=== PATIENT | male | born 1970 | race Caucasian/White ===

== ENCOUNTER 2018-01-09 19:02 | Emergency (ER) | payer MEDICARE, MEDICAID ==
[~2018-01-09] VITALS: Ht 182.9 cm; Wt 109.2 kg
[2018-01-09 19:46] LABS: BASOPHILS # (AUTO) 0.1 X10'3 (0-0.2); BASOPHILS % (AUTO) 0.8 % (0-1); EOSINOPHILS # (AUTO) 0.3 X10'3 (0-0.9); EOSINOPHILS % (AUTO) 4.1 % (0-6); HEMATOCRIT 51.6 % (42.0-52.0); HEMOGLOBIN 17.6 g/dl (14.0-17.9); LYMPHOCYTES # (AUTO) 1.9 X10'3 (1.1-4.8); LYMPHOCYTES % (AUTO) 23.7 % (21-51); MEAN CORPUSCULAR HEMOGLOBIN 31.9 PG (27.0-31.0); MEAN CORPUSCULAR HGB CONC 34.2 % (33.0-36.5); MEAN CORPUSCULAR VOLUME 93.5 FL (78-98); MEAN PLATELET VOLUME 7.9 FL (7.4-10.4); MONOCYTES # (AUTO) 0.7 X10'3 (0-0.9); MONOCYTES % (AUTO) 8.6 % (2-12); NEUTROPHILS # (AUTO) 5.1 X10'3 (1.8-7.7); NEUTROPHILS % (AUTO) 62.8 % (42-75); PLATELET COUNT 272 X10'3 (140-440); RED BLOOD COUNT 5.52 X10'6 (4.70-6.10); RED CELL DISTRIBUTION WIDTH 13.1 % (11.5-14.5); WHITE BLOOD COUNT 8.1 X10'3 (4.5-11.0)
[2018-01-09 19:55] LABS: ALANINE AMINOTRANSFERASE 62 U/L (12-78); ALKALINE PHOSPHATASE 138 IU/L (46-116); ANION GAP 11 (8-16); ASPARTATE AMINO TRANSFERASE 33 U/L (10-37); BILIRUBIN,TOTAL 0.6 MG/DL (0.1-1.0); BLOOD UREA NITROGEN 13 MG/DL (7-18); BUN/CREATININE RATIO 15.1 (5.4-32.0); CALCIUM 9.5 MG/DL (8.5-10.1); CHLORIDE 101 MMOL/L (99-107); CREATININE 0.86 MG/DL (0.60-1.10); GLUCOSE 93 MG/DL (70-104); SODIUM 138 MMOL/L (135-145); TOTAL CARBON DIOXIDE 25.6 MMOL/L (24-32); TOTAL PROTEIN 8.2 G/DL (6.4-8.2); eGFR > 90 ML/MIN
[2018-01-09 20:04] LABS: ETHANOL < 0.010 GM/DL (0.0-0.010)
[2018-01-09 20:41] LABS: URINE AMPHETAMINE SCREEN POSITIVE (Neg); URINE BARBITUATE SCREEN NEGATIVE (Neg); URINE BENZODIAZEPINES SCREEN POSITIVE (Neg); URINE CANNABINOID SCREEN POSITIVE (Neg); URINE COCAINE SCREEN NEGATIVE (Neg); URINE METHADONE SCREEN NEGATIVE (Neg); URINE OPIATE SCREEN POSITIVE (Neg); URINE PHENCYCLIDINE SCREEN NEGATIVE (Neg)
[2018-01-09] MEDS ORDERED: CANA100T PO (23:03)
[2018-01-09] MEDS ORDERED: AMIT-189 PO (23:03)
[2018-01-09] MEDS ORDERED: FLUT16SP2 BOTHNARES (23:03)
[2018-01-09] MEDS ORDERED: LISI10TA4 PO (23:03)
[2018-01-09] MEDS ORDERED: OXYC10TA47 PO (23:03)
[2018-01-09] MEDS ORDERED: IBUP-1986 PO (23:03)
[2018-01-09] MEDS ORDERED: LORA-269 PO (23:03)
[2018-01-09] MEDS ORDERED: CYCL-1 PO (23:03)
[2018-01-09] MEDS ORDERED: FLO0.4C PO (23:03)
[2018-01-09] MEDS ORDERED: MORP30TA PO (23:03)
[2018-01-09] MEDS ORDERED: OMEP10CA4 PO (23:03)
[2018-01-09] MEDS ORDERED: DIAZ5TAB PO (23:03)
[2018-01-10] MEDS ORDERED: LORazepam 0.5 MG tablet PO PRN (01:00)
[2018-01-10] MEDS ORDERED: haloperidol 1mg tablet PO PRN (01:00)
[2018-01-10 06:52] VITALS: BP 120/70
[2018-01-10] MEDS ORDERED: MORP30CA16 PO (09:53)
[2018-01-10] MEDS ORDERED: oxyCODONE IR 5mg (immed. release) tablet PO PRN (10:10)
[2018-01-10] MEDS ORDERED: morphine ER 30mg tablet PO SCH (10:30)
[2018-01-10] MEDS ORDERED: CANA100T PO (12:18)
[2018-01-10] MEDS ORDERED: tamsulosin 0.4mg capsule PO SCH (18:00)
[2018-01-10] MEDS ORDERED: fluticasone nasal spray 16GM bottle NS SCH (20:00)
== END 2018-01-10 11:48 ==
LOC: ER 19:03
DX: F32.9 Major depressive disorder, single episode, unspecified (principal); F41.9 Anxiety disorder, unspecified; R45.851 Suicidal ideations; F15.10 Other stimulant abuse, uncomplicated; G89.29 Other chronic pain; F17.200 Nicotine dependence, unspecified, uncomplicated; Z79.2 Long term (current) use of antibiotics; Z79.899 Other long term (current) drug therapy
CPT/HCPCS: 36415; 80053; 80305; 80320; 84443; 85025; 99285

== ENCOUNTER 2018-01-10 10:06 | Inpatient (IN) | payer MEDICARE, MEDICAID ==
[~2018-01-10] VITALS: Ht 182.9 cm; Wt 107.2 kg
[~2018-01-10 10:06] MED LIST: AMIT-189 PO; CANA100T PO; CYCL-1 PO; DIAZ5TAB PO; FLO0.4C PO; FLUT16SP2 BOTHNARES; IBUP-1986 PO; LISI10TA4 PO; LORA-269 PO; MORP30CA16 PO; MORP30TA PO; OMEP10CA4 PO; OXYC10TA47 PO
[2018-01-10] MEDS ORDERED: CANA100T PO (12:18)
[2018-01-10] MEDS ORDERED: mag hydrox/Alum hydrox/simeth 30ml oral suspension PO PRN (12:20)
[2018-01-10] MEDS ORDERED: acetaminophen 325mg tablet PO PRN (12:20)
[2018-01-10] MEDS ORDERED: magnesium hydroxide 30ml (MOM) UD suspension PO PRN (12:20)
[2018-01-10 12:25] VITALS: BP 124/85
[2018-01-10] MEDS ORDERED: ibuprofen tablet 400 MG TABLET PO PRN (16:00)
[2018-01-10] MEDS ORDERED: oxyCODONE IR 5mg (immed. release) tablet PO PRN (16:00)
[2018-01-10] MEDS ORDERED: tamsulosin 0.4mg capsule PO SCH (18:00)
[2018-01-10 19:00] VITALS: BP 123/77
[2018-01-10] MEDS ORDERED: morphine ER 30mg tablet PO SCH (20:00)
[2018-01-10] MEDS ORDERED: fluticasone nasal spray 16GM bottle NS SCH (20:00)
[2018-01-11] MEDS ORDERED: pantoprazole 40mg Tablet.DR PO SCH (07:30)
[2018-01-11] MEDS ORDERED: lisinopril 10 MG tablet PO SCH (08:00)
== END 2018-01-10 20:20 | disposition left against medical advice (07) | DRG 885 ==
LOC: ADULT MH 10:06
PROVIDERS: ADMIT Psychiatry & Neurology Psychiatry; ATTEND Psychiatry & Neurology Psychiatry
DX: F31.81 Bipolar II disorder (principal); R45.851 Suicidal ideations; F43.10 Post-traumatic stress disorder, unspecified; F15.90 Other stimulant use, unspecified, uncomplicated; G89.29 Other chronic pain; E11.9 Type 2 diabetes mellitus without complications; K21.9 Gastro-esophageal reflux disease without esophagitis; Z53.21 Procedure and treatment not carried out due to patient leaving prior to being seen by health care provider; I10 Essential (primary) hypertension; M19.90 Unspecified osteoarthritis, unspecified site; Z79.899 Other long term (current) drug therapy; Z59.0 Homelessness
CPT/HCPCS: 82948; 87070

== ENCOUNTER 2018-01-13 10:00 | Emergency (ER) | payer MEDICARE, MEDICAID ==
[~2018-01-13] VITALS: Ht 182.9 cm; Wt 108.2 kg
[~2018-01-13 10:00] MED LIST changes: -AMIT-189 PO; -CYCL-1 PO; -DIAZ5TAB PO; -LORA-269 PO; -MORP30CA16 PO
[2018-01-13] MEDS ORDERED: ARIP5TAB4 PO (10:38)
[2018-01-13] MEDS ORDERED: AMIT-189 PO (10:38)
[2018-01-13 10:55] LABS: URINE AMPHETAMINE SCREEN NEGATIVE (Neg); URINE BARBITUATE SCREEN NEGATIVE (Neg); URINE BENZODIAZEPINES SCREEN NEGATIVE (Neg); URINE CANNABINOID SCREEN POSITIVE (Neg); URINE COCAINE SCREEN NEGATIVE (Neg); URINE METHADONE SCREEN NEGATIVE (Neg); URINE OPIATE SCREEN POSITIVE (Neg); URINE PHENCYCLIDINE SCREEN NEGATIVE (Neg)
[2018-01-13 10:58] LABS: BASOPHILS % (AUTO) 0.6 % (0-1); EOSINOPHILS # (AUTO) 0.4 X10'3 (0-0.9); EOSINOPHILS % (AUTO) 4.5 % (0-6); HEMOGLOBIN 17.2 g/dl (14.0-17.9); LYMPHOCYTES # (AUTO) 1.8 X10'3 (1.1-4.8); MEAN CORPUSCULAR HGB CONC 34.4 % (33.0-36.5); MEAN CORPUSCULAR VOLUME 92.8 FL (78-98); MEAN PLATELET VOLUME 7.7 FL (7.4-10.4); MONOCYTES # (AUTO) 0.8 X10'3 (0-0.9); MONOCYTES % (AUTO) 9.5 % (2-12); NEUTROPHILS # (AUTO) 5.2 X10'3 (1.8-7.7); NEUTROPHILS % (AUTO) 63.4 % (42-75); PLATELET COUNT 282 X10'3 (140-440); RED BLOOD COUNT 5.38 X10'6 (4.70-6.10); RED CELL DISTRIBUTION WIDTH 13.4 % (11.5-14.5); WHITE BLOOD COUNT 8.3 X10'3 (4.5-11.0)
[2018-01-13 11:12] LABS: ALANINE AMINOTRANSFERASE 59 U/L (12-78); ALBUMIN 3.7 G/DL (3.4-5.0); ALBUMIN/GLOBULIN RATIO 0.9 (1.1-1.5); ALKALINE PHOSPHATASE 129 IU/L (46-116); ANION GAP 9 (8-16); ASPARTATE AMINO TRANSFERASE 30 U/L (10-37); BILIRUBIN,TOTAL 0.5 MG/DL (0.1-1.0); BLOOD UREA NITROGEN 18 MG/DL (7-18); BUN/CREATININE RATIO 21.4 (5.4-32.0); CALCIUM 8.7 MG/DL (8.5-10.1); CHLORIDE 101 MMOL/L (99-107); CREATININE 0.84 MG/DL (0.60-1.10); GLUCOSE 92 MG/DL (70-104); POTASSIUM 4.1 MMOL/L (3.5-5.1); SODIUM 138 MMOL/L (135-145); TOTAL CARBON DIOXIDE 27.6 MMOL/L (24-32); TOTAL PROTEIN 7.7 G/DL (6.4-8.2); eGFR > 90 ML/MIN
[2018-01-13 11:17] LABS: ETHANOL < 0.010 GM/DL (0.0-0.010)
[2018-01-13] MEDS ORDERED: ibuprofen tablet 400 MG TABLET PO PRN (19:00)
[2018-01-13] MEDS ORDERED: MSC30T PO (19:04)
[2018-01-13] MEDS: cloNIDine 0.1 mg tablet PO SCH (20:00)
[2018-01-13] MEDS: aripiprazole 5mg tablet PO SCH (20:00)
[2018-01-13] MEDS: amitryptiline 50mg tablet PO SCH (20:16)
[2018-01-13] MEDS: docusate sod 100mg capsule PO SCH (20:16)
[2018-01-13] MEDS: clonazePAM 1mg tablet PO SCH (20:17)
[2018-01-13] MEDS: oxyCODONE IR 5mg (immed. release) tablet PO PRN (20:26)
[2018-01-13] MEDS ORDERED: amitryptiline 50mg tablet PO SCH (21:00)
[2018-01-13] MEDS: morphine ER 30mg tablet PO SCH (23:53)
[2018-01-14] MEDS: morphine ER 30mg tablet PO SCH ×3 (08:49→23:52)
[2018-01-14] MEDS: fluticasone nasal spray 16GM bottle NS SCH (08:50)
[2018-01-14] MEDS: cloNIDine 0.1 mg tablet PO SCH ×2 (08:50→20:15)
[2018-01-14] MEDS: lisinopril 10 MG tablet PO SCH (08:50)
[2018-01-14] MEDS: aripiprazole 5mg tablet PO SCH ×2 (08:50→20:15)
[2018-01-14] MEDS: docusate sod 100mg capsule PO SCH ×2 (08:50→20:16)
[2018-01-14] MEDS: pantoprazole 40mg Tablet.DR PO SCH (08:52)
[2018-01-14] MEDS ORDERED: tamsulosin 0.4mg capsule PO SCH (18:00)
[2018-01-14] MEDS: clonazePAM 1mg tablet PO SCH (20:15)
[2018-01-14] MEDS: amitryptiline 50mg tablet PO SCH (20:35)
[2018-01-15] MEDS: oxyCODONE IR 5mg (immed. release) tablet PO PRN ×2 (02:41→13:01)
[2018-01-15] MEDS: aripiprazole 5mg tablet PO SCH (07:54)
[2018-01-15] MEDS: lisinopril 10 MG tablet PO SCH (07:55)
[2018-01-15] MEDS: morphine ER 30mg tablet PO SCH (07:55)
[2018-01-15] MEDS: fluticasone nasal spray 16GM bottle NS SCH (07:55)
[2018-01-15] MEDS: pantoprazole 40mg Tablet.DR PO SCH (07:55)
[2018-01-15] MEDS: docusate sod 100mg capsule PO SCH (07:55)
[2018-01-15] MEDS: cloNIDine 0.1 mg tablet PO SCH (07:57)
[2018-01-15 15:20] VITALS: BP 100/64
== END 2018-01-15 13:15 ==
LOC: ER 10:00
DX: F32.9 Major depressive disorder, single episode, unspecified (principal); R45.851 Suicidal ideations; G89.29 Other chronic pain; F17.200 Nicotine dependence, unspecified, uncomplicated; F15.90 Other stimulant use, unspecified, uncomplicated; Z79.2 Long term (current) use of antibiotics; Z79.899 Other long term (current) drug therapy
CPT/HCPCS: 36415; 80053; 80305; 80320; 85025; 99285

== ENCOUNTER 2020-12-30 19:45 | Emergency (ER) | payer MEDICAID ==
[~2020-12-30] VITALS: Ht 182.9 cm; Wt 79.5 kg
[~2020-12-30 19:45] MED LIST changes: +AMIT-189 PO; +ARIP5TAB14 PO; +LISI10TA27 PO; -LISI10TA4 PO; -MORP30TA PO; +MSC30T PO; -OMEP10CA4 PO; +OMEP10CA5 PO
[2020-12-30 20:41] VITALS: BP 143/95
[2020-12-30] MEDS ORDERED: LORazepam 1 MG tablet PO ONE (22:40)
== END 2020-12-31 00:44 | disposition home or self-care (01) ==
LOC: ER 19:46
DX: K40.91 Unilateral inguinal hernia, without obstruction or gangrene, recurrent (principal); F32.9 Major depressive disorder, single episode, unspecified; G89.29 Other chronic pain; F15.10 Other stimulant abuse, uncomplicated
CPT/HCPCS: 99283